=== PATIENT | male | born 1995 | race American Indian/Alaskan Native ===

== ENCOUNTER 2017-06-23 19:13 | Emergency (ER) | payer OTHER ==
[2017-06-23 20:07] VITALS: BP 118/58
[2017-06-23] MEDS ORDERED: NORCO 5/325 PO ONE (20:13)
[2017-06-23] MEDS ORDERED: MOTRIN PO ONE (20:13)
--- NOTE | 2017-06-23 20:13 | Emergency Department Report ---
ED Lower Extremity HPI - General Chief Complaint: Extremity Injury, Lower Stated Complaint: LEFT FOOT PAIN Time Seen by Provider: 06/23/17 20:08 Source: patient, family Mode of arrival: Ambulatory Limitations: No Limitations - History of Present Illness Initial Comments: Patient here reports that he was playing basketball and he is left ankle foot twisted while playing basketball. He is reporting pain 10 out of 10 that feel achy and throbbing. Denies any numbness or tingling to extremities. Denies any fall. Denies any back or neck pain. Denies any headache. He said he did not take any medication prior to coming to the emergency room. MD Complaint: ankle injury, foot injury -: This evening Injury: Ankle: Left (pain and swelling), Foot: Left (pain) Type of Injury: inversion (while playing basketball) Place: street/outdoors Severity: severe Severity scale (0 -10): 10 Improves With: nothing Worsens With: weight bearing, movement, palpation Context: running Associated Symptoms: swelling, able to partially bear weight. denies: snap/pop sensation, numbness, tingling, unable to bear weight, ambulatory Treatments Prior to Arrival: other (none) - Related Data Previous Rx's Medication Instructions Recorded Last Taken Type Ibuprofen [Motrin] 600 mg PO Q8H PRN #15 tablet 06/23/17 Unknown Rx Allergies Allergy/AdvReac Type Severity Reaction Status Date / Time No Known Allergies Allergy Unverified 06/23/17 19:51 ED Review of Systems ROS: Stated complaint: LEFT FOOT PAIN Other details as noted in HPI Comment: All other systems reviewed and negative Constitutional: denies: chills, fever Respiratory: no symptoms reported Cardiovascular: denies: chest pain, palpitations, edema, syncope Gastrointestinal: denies: abdominal pain, nausea, vomiting, diarrhea Musculoskeletal: joint swelling, arthralgia. denies: back pain, myalgia Skin: denies: rash Neurological: denies: headache, weakness, numbness, paresthesias, confusion, abnormal gait, vertigo ED Past Medical Hx - Past Medical History Previous Medical History?: No - Surgical History Past Surgical History?: No - Family History Family history: no significant - Social History Smoking Status: Never Smoker Substance Use Type: Marijuana Other Social History: Single and lives with family - Medications Home Medications: Home Medications Medication Instructions Recorded Confirmed Last Taken Type Ibuprofen [Motrin] 600 mg PO Q8H PRN #15 tablet 06/23/17 Unknown Rx ED Physical Exam - General Limitations: No Limitations General appearance: alert, in no apparent distress - Head Head exam: Present: atraumatic, normocephalic, normal inspection - Eye Eye exam: Present: normal appearance, PERRL, EOMI. Absent: periorbital swelling , periorbital tenderness Pupils: Present: normal accommodation - Neck Neck exam: Present: normal inspection, full ROM. Absent: tenderness, meningismus, lymphadenopathy - Respiratory Respiratory exam: Present: normal lung sounds bilaterally. Absent: respiratory distress, chest wall tenderness - Cardiovascular Cardiovascular Exam: Present: regular rate, normal rhythm, normal heart sounds - GI/Abdominal GI/Abdominal exam: Present: soft, normal bowel sounds. Absent: distended, tenderness, guarding, rebound, rigid - Extremities Exam Extremities exam: Present: full ROM (full range of motion to left ankle but reports pain), tenderness (tender to palpate the left outer ankle), normal capillary refill, joint swelling (left outer ankle). Absent: normal inspection , pedal edema, calf tenderness - Expanded Lower Extremity Exam Left Hip exam: Present: normal inspection, full ROM, pelvic stability. Absent: tenderness, swelling, abrasion, laceration, ecchymosis, deformity, crepidus, dislocation, erythema, external rotation, internal rotation, shortening Upper Leg exam: Present: normal inspection, full ROM. Absent: tenderness, swelling, abrasion, laceration, ecchymosis, deformity, crepidus, dislocation, erythema Knee exam: Present: normal inspection, full ROM, full knee extension. Absent: tenderness, swelling, abrasion, laceration, ecchymosis, deformity, crepidus, dislocation, erythema, effusion, pain w/ pronation/supination Lower Leg exam: Present: normal inspection, full ROM. Absent: tenderness, swelling, abrasion, laceration, ecchymosis, deformity, crepidus, dislocation, erythema, palpable cord, Jennifer's sign Ankle exam: Present: full ROM (Pain with movement), tenderness (left outer ankle ), swelling (left outer ankle). Absent: normal inspection, abrasion, laceration , ecchymosis, deformity, crepidus, dislocation, erythema Foot/Toe exam: Present: normal inspection, full ROM. Absent: tenderness, swelling, abrasion, laceration, ecchymosis, deformity, crepidus, dislocation, erythema, amputation, puncture wound, foreign body, calcaneal tenderness, tenderness at base of 5th metatarsal, nail avulsion, subungual hematoma Neuro vascular tendon exam: Present: no vascular compromise. Absent: pulse deficit, abnormal cap refill, motor deficit, sensory deficit, tendon deficit, extremity cold to touch, pallor, abnormal 2-point discrimination, decreased fine /light touch, foot drop, peroneal nerve deficit, significant pain with passive ROM of distal joint Gait: Positive: observed and limited by pain - Back Exam Back exam: Present: normal inspection, full ROM. Absent: tenderness, CVA tenderness (R), CVA tenderness (L), muscle spasm, paraspinal tenderness, vertebral tenderness, rash noted - Neurological Exam Neurological exam: Present: alert, oriented X3, normal gait, reflexes normal. Absent: motor sensory deficit - Psychiatric Psychiatric exam: Present: normal affect, normal mood - Skin Skin exam: Present: warm, dry, intact, normal color. Absent: rash ED Course Vital Signs 06/23/17 06/23/17 19:47 20:21 Temperature 98 F Pulse Rate 74 Respiratory 16 16 Rate Blood Pressure 118/58 Blood Pressure 118/58 [Left] O2 Sat by Pulse 100 Oximetry - Reevaluation(s) Reevaluation #1: 06/23/17 21:08 Patient given [place] 5/325 2 tablets and Motrin 800 mg emergency room for ankle pain - Orthopedic Splinting/Casting Injury #1 Side: left Lower Extremity Injury Location: ankle Lower Extremity Immobilizer: stirrup splint Additional Comments: Patient placed in left ankle stirrup and tolerated procedure well. He is with good color, sensation, temperature and movement to left foot. ED Lower Extremity MDM - Radiology Data Radiology results: report reviewed X-ray of left foot and ankle reveal no acute fracture dislocation. Patient with swelling and some soft tissue swelling to left ankle. - Medical Decision Making ED course: Patient here after he injured his left ankle and complaining of left ankle and left foot pain after twisting his ankle playing basketball. She was given [place] 5/325 2 tablets and Motrin 800 mg in the emergency room which relieved his pain. X-ray of left ankle and left foot reveal no fracture or dislocation and this was relayed to patient. There was some soft tissue swelling so patient with diagnosis of left ankle sprain and arthralgia left ankle and left foot. Diagnosis and treatment plan explained to patient. Rice therapy explained. He is understanding of discharge diagnosis and treatment plan discharge home with prescription for Motrin and to follow up with orthopedic doctor. Critical care attestation.: If time is entered above; I have spent that time in minutes in the direct care of this critically ill patient, excluding procedure time. ED Disposition Clinical Impression: Arthralgia of multiple sites Mild sprain of left ankle Qualifiers: Encounter type: initial encounter Qualified Code(s): S93.402A - Sprain of unspecified ligament of left ankle, initial encounter Disposition: TO HOME OR SELFCARE Is pt being admited?: No Does the pt Need Aspirin: No Condition: Stable Instructions: Ankle Sprain (ED), Ankle Stirrup Splint (ED), Knee Exercises (GEN ), Arthralgia (ED) Additional Instructions: Please rest for 72 hours See discharge instructions for rice protocol Take Motrin as this is an anti-inflammatory and he will help U pain and to reduce swelling Prescriptions: Ibuprofen [Motrin] 600 mg PO Q8H PRN #15 tablet PRN Reason: Pain Referrals: AUBREY HAQUE MD [Staff Physician] - 3-5 Days Forms: Work/School Release Form(ED)
--- NOTE | 2017-06-23 20:46 | XRay Report ---
FINAL REPORT PROCEDURE: XR ANKLE 3+V LT TECHNIQUE: LEFT ankle radiographs, AP, lateral, and oblique views. CPT 84483 HISTORY: lt ankle swelling and injury. Pain COMPARISON: No prior studies are available for comparison. FINDINGS: Fracture (s) and/or Dislocation(s): None. Alignment: Normal. Joint space(s): Normal. Soft tissues: Normal. Bone mineralization: Normal. Foreign bodies: None. Calcaneal spurring: None. IMPRESSION: Normal Examination.
--- NOTE | 2017-06-23 20:47 | XRay Report ---
FINAL REPORT PROCEDURE: XR FOOT 2V LT TECHNIQUE: LEFT foot radiographs, AP and lateral views. HISTORY: Left foot and ankle pain COMPARISON: No prior studies are available for comparison. FINDINGS: Fracture (s) and/or Dislocation(s): None . Alignment: Normal. Joint space(s): Normal. Soft tissues: Normal. Bone mineralization: Normal. Foreign bodies: None. Calcaneal spurring: None. IMPRESSION: Normal Examination.
== END 2017-06-23 21:30 | disposition home or self-care (01) ==
LOC: ED 19:13
DX: S93.402A Sprain of unspecified ligament of left ankle, initial encounter (principal); F12.10 Cannabis abuse, uncomplicated; X58.XXXA Exposure to other specified factors, initial encounter; Y93.67 Activity, basketball; Y92.89 Other specified places as the place of occurrence of the external cause; Y99.8 Other external cause status
CPT/HCPCS: 99283

== ENCOUNTER 2017-09-04 17:04 | Emergency (ER) | payer SELFPAY ==
[2017-09-04 18:29] LABS: Basophils % (Auto) 0.2 % (0.0-1.8); Eosinophils % (Auto) 0.1 % (0.0-4.3); Hematocrit 47.6 % (35.5-45.6); Hemoglobin 16.3 gm/dl (11.8-15.2); Mean Corpuscular HGB Conc 34 % (32-34); Mean Corpuscular Hemoglobin 31 pg (28-32); Mean Corpuscular Volume 89 fl (84-94); Platelet Count 234 K/mm3 (140-440); Red Blood Count 5.35 M/mm3 (3.65-5.03); Red Cell Distribution Width 12.8 % (13.2-15.2); White Blood Count 10.5 K/mm3 (4.5-11.0)
[2017-09-04 18:32] LABS: Anion Gap 16 mmol/L; BUN/Creatinine Ratio 11; Blood Urea Nitrogen 9 mg/dL (9-20); Calcium 9.3 mg/dL (8.4-10.2); Carbon Dioxide 26 mmol/L (22-30); Chloride 102.5 mmol/L (98-107); Glucose 99 mg/dL (75-100); Potassium 4.1 mmol/L (3.6-5.0); Sodium 140 mmol/L (137-145)
[2017-09-04] MEDS: TORADOL IV ONE (20:10)
[2017-09-04] MEDS: NACL 0.9% 1000 ML 1,000 ML IV ONE (20:10)
[2017-09-04] MEDS: ZOFRAN IV ONE (20:10)
[2017-09-04 20:17] LABS: Bilirubin,Urine NEG (Negative); Blood,Urine NEG (Negative); Ketones,Urine NEG (Negative); Leukocyte Esterase,Urine NEG (Negative); Mucus,Urine 3+ /HPF; Nitrite,Urine NEG (Negative); WBC,Urine < 1.0 /HPF (0.0-6.0)
--- NOTE | 2017-09-04 20:53 | Emergency Department Report ---
ED N/V/D HPI - General Chief complaint: Nausea/Vomiting/Diarrhea Stated complaint: VOMTING Time Seen by Provider: 09/04/17 19:04 Source: patient Mode of arrival: Ambulatory Limitations: No Limitations - History of Present Illness Initial comments: pt is a 21 y/o aam with nmh , who woke up with n/v/d x 4 episodes, pt presents with other family member for same symptoms after eating marci noodles last pm, symptoms including loose stool with n/v stomach contents and abdominal spasm x 4 episodes , symptoms rated at 4/10 aching cramping gnawing, there is no fever or chills no dizziness no lightheadedness, last po intake this am. MD complaint: nausea, vomiting, diarrhea, abdominal pain Onset/Timin -: days(s) Description of Vomiting: food contents Description of Diarrhea: water Associated Abdominal Pain: Yes (4/10) Location: diffuse Radiation: none Pain Scale: 4 Quality: cramping, aching Consistency: intermittent Improves with: none Worsens with: eating Context: possible food poisoning (other family member same symptoms eat same food. ) Associated Symptoms: nausea/vomiting. denies: myalgias, chest pain, cough, diaphoresis, fever/chills, headaches, loss of appetite, malaise, rash, dysuria, shortness of breath, syncope, weakness - Related Data Previous Rx's Medication Instructions Recorded Last Taken Type Ibuprofen [Motrin] 600 mg PO Q8H PRN #15 tablet 06/23/17 Unknown Rx Dicyclomine [Bentyl] 10 mg PO QID PRN #30 capsule 09/04/17 Unknown Rx Ondansetron [Zofran TAB] 4 mg PO Q8HR PRN #12 tablet 09/04/17 Unknown Rx Allergies Allergy/AdvReac Type Severity Reaction Status Date / Time No Known Allergies Allergy Unverified 06/23/17 19:51 ED Review of Systems ROS: Stated complaint: VOMTING Other details as noted in HPI Constitutional: denies: chills, fever Eyes: denies: eye pain, eye discharge, vision change ENT: denies: ear pain, throat pain Respiratory: no symptoms reported Cardiovascular: denies: chest pain, palpitations Endocrine: no symptoms reported Gastrointestinal: abdominal pain, nausea, vomiting, diarrhea. denies: constipation, hematemesis, melena, hematochezia Genitourinary: denies: urgency, dysuria Musculoskeletal: denies: back pain, joint swelling, arthralgia Skin: denies: rash, lesions Neurological: denies: headache, weakness, paresthesias Psychiatric: denies: anxiety, depression Hematological/Lymphatic: denies: easy bleeding, easy bruising ED Past Medical Hx - Past Medical History Previous Medical History?: No - Surgical History Past Surgical History?: No - Social History Smoking Status: Current Some Day Smoker Substance Use Type: Alcohol, Marijuana - Medications Home Medications: Home Medications Medication Instructions Recorded Confirmed Last Taken Type Ibuprofen [Motrin] 600 mg PO Q8H PRN #15 tablet 06/23/17 Unknown Rx Dicyclomine [Bentyl] 10 mg PO QID PRN #30 capsule 09/04/17 Unknown Rx Ondansetron [Zofran TAB] 4 mg PO Q8HR PRN #12 tablet 09/04/17 Unknown Rx ED Physical Exam - General Limitations: No Limitations General appearance: alert, in no apparent distress - Head Head exam: Present: atraumatic, normocephalic - Eye Eye exam: Present: normal appearance - ENT ENT exam: Present: normal orophraynx, mucous membranes moist - Neck Neck exam: Present: normal inspection, full ROM - Respiratory Respiratory exam: Present: normal lung sounds bilaterally. Absent: respiratory distress, wheezes, stridor - Cardiovascular Cardiovascular Exam: Present: regular rate, normal rhythm, normal heart sounds. Absent: systolic murmur, diastolic murmur, rubs, gallop - GI/Abdominal GI/Abdominal exam: Present: soft, normal bowel sounds. Absent: distended, tenderness, guarding, rebound, rigid, diminished bowel sounds, organomegaly, mass, bruit, pulsatile mass, hernia - Expanded GI/Abdominal Exam Expanded GI/Abdominal exam: Absent: psoas sign, obturator sign, heel tap sign, Hoyos's sign, Rovsing's sign, tenderness at [place]'s Point, ascites - Rectal Rectal exam: Present: deferred - Extremities Exam Extremities exam: Present: normal inspection - Back Exam Back exam: Present: normal inspection - Neurological Exam Neurological exam: Present: alert, oriented X3 - Psychiatric Psychiatric exam: Present: normal affect, normal mood - Skin Skin exam: Present: warm, dry, intact, normal color. Absent: rash ED Course Vital Signs 09/04/17 17:29 Temperature 98.9 F Pulse Rate 85 Respiratory 18 Rate Blood Pressure 128/69 O2 Sat by Pulse 100 Oximetry ED Medical Decision Making - Lab Data Result diagrams: 09/04/17 18:02 09/04/17 18:02 Laboratory Tests 09/04/17 09/04/17 09/04/17 18:02 18:02 19:16 WBC 10.5 RBC 5.35 H Hgb 16.3 H Hct 47.6 H MCV 89 MCH 31 MCHC 34 RDW 12.8 L Plt Count 234 Lymph % (Auto) 6.8 L Weber % (Auto) 5.2 Eos % (Auto) 0.1 Baso % (Auto) 0.2 Lymph # 0.7 L Weber # 0.5 Eos # 0.0 Baso # 0.0 Seg Neutrophils % 87.7 H Seg Neutrophils # 9.2 H Sodium 140 Potassium 4.1 Chloride 102.5 Carbon Dioxide 26 Anion Gap 16 BUN 9 Creatinine 0.8 Estimated GFR > 60 BUN/Creatinine Ratio 11 Glucose 99 Calcium 9.3 Urine Color Yellow Urine Turbidity Clear Urine pH 8.0 H Ur Specific [place] 1.026 Urine Protein 100 mg/dl Urine Glucose (UA) Neg Urine Ketones Neg Urine Blood Neg Urine Nitrite Neg Urine Bilirubin Neg Urine Urobilinogen 2.0 Ur Leukocyte Esterase Neg Urine WBC (Auto) < 1.0 Urine RBC (Auto) 1.0 Urine Mucus 3+ - Medical Decision Making pt is a 21 y/o aam with nmh , who woke up with n/v/d x 4 episodes, pt presents with other family member for same symptoms after eating [place]ci noodles last pm, symptoms including loose stool with n/v stomach contents and abdominal spasm x 4 episodes , symptoms rated at 4/10 aching cramping gnawing, there is no fever or chills no dizziness no lightheadedness, last po intake this am. exam: pt appears well hydrated well nourished and nontoxic abd: bs x 4 qds abd soft nontender no bruit no rebound , labs noted normal , symptoms are resolved at this time pt is tolerating po intake without n/v/d plan: dc to home with bentyl , zofran, and hydration instructions pt will follow up with primary care in 3 days or return immediately to emergency if symptoms worsen pt verbalized agreement and understanding with discharge plan. Critical care attestation.: If time is entered above; I have spent that time in minutes in the direct care of this critically ill patient, excluding procedure time. ED Disposition Clinical Impression: Nausea vomiting and diarrhea Disposition: DC-01 TO HOME OR SELFCARE Is pt being admited?: No Does the pt Need Aspirin: No Condition: Good Instructions: Acute Nausea and Vomiting (ED) Prescriptions: Dicyclomine [Bentyl] 10 mg PO QID PRN #30 capsule PRN Reason: abdominal pain Ondansetron [Zofran TAB] 4 mg PO Q8HR PRN #12 tablet PRN Reason: Nausea And Vomiting Referrals: PRIMARY CARE, [Primary Care Provider] - 3-5 Days Forms: Work/School Release Form(ED) Time of Disposition: 21:00
[2017-09-04 21:38] VITALS: BP 106/60
== END 2017-09-04 21:10 | disposition home or self-care (01) ==
LOC: ED 17:04
DX: R11.2 Nausea with vomiting, unspecified (principal); R19.7 Diarrhea, unspecified; R10.84 Generalized abdominal pain; F12.10 Cannabis abuse, uncomplicated; F17.200 Nicotine dependence, unspecified, uncomplicated
CPT/HCPCS: 36415; 80048; 81001; 85025; 96361; 96374; 96375; 99283; J1885; J2405; J7030

== ENCOUNTER 2018-07-01 17:22 | Emergency (ER) | payer SELFPAY ==
[2018-07-01 17:58] VITALS: BP 126/70
--- NOTE | 2018-07-01 18:58 | Emergency Department Report ---
ED ENT HPI - General Chief complaint: Dental/Oral Stated complaint: TOOTH PAIN/SWELLING Time Seen by Provider: 07/01/18 18:52 Source: patient Mode of arrival: Ambulatory Limitations: No Limitations - History of Present Illness Initial comments: This is a 22-year-old male nontoxic, well nourished in appearance, no acute signs of distress presents to the ED with c/o of right lower toothache 6 months. Patient denies following up with a dentist. Patient stated that pain radiates from his job to his right side of head. Patient otherwise denies any head trauma. Patient describes toothache as aching level of 8 out of 10. Patient denies any facial swelling. Patient denies any numbness, tingling, fever, chills, headache, stiff neck, abdominal pain, chest pain, shortness of breath. Patient denies any drug allergies or significant past medical history. MD complaint: tooth pain -: month(s) (6) Location: tooth # 1 - pain here Severity: mild Severity scale (0 -10): 8 Quality: aching Consistency: constant Improves with: none Worsens with: none Associated Symptoms: gum swelling, toothache. denies: fever, cough, pain with swallowing, sore throat, tinnitus, hearing loss, discharge from ear, rhinorrhea - Related Data Previous Rx's Medication Instructions Recorded Last Taken Type Ibuprofen [Motrin] 600 mg PO Q8H PRN #15 tablet 06/23/17 Unknown Rx Dicyclomine [Bentyl] 10 mg PO QID PRN #30 capsule 09/04/17 Unknown Rx Ondansetron [Zofran TAB] 4 mg PO Q8HR PRN #12 tablet 09/04/17 Unknown Rx Amoxicillin/K Clav Tab [Augmentin 1 tab PO Q12HR #20 tab 07/01/18 Unknown Rx 875 mg] Chlorhexidine Mouthwash [Peridex] 15 ml MM BID #1 bottle 07/01/18 Unknown Rx Ibuprofen [Motrin] 600 mg PO Q8H PRN #30 tablet 07/01/18 Unknown Rx Allergies Allergy/AdvReac Type Severity Reaction Status Date / Time No Known Allergies Allergy Verified 07/01/18 17:55 ED Dental HPI - General Chief complaint: Dental/Oral Stated complaint: TOOTH PAIN/SWELLING Time Seen by Provider: 07/01/18 18:52 Source: patient Mode of arrival: Ambulatory Limitations: No Limitations - Related Data Previous Rx's Medication Instructions Recorded Last Taken Type Ibuprofen [Motrin] 600 mg PO Q8H PRN #15 tablet 06/23/17 Unknown Rx Dicyclomine [Bentyl] 10 mg PO QID PRN #30 capsule 09/04/17 Unknown Rx Ondansetron [Zofran TAB] 4 mg PO Q8HR PRN #12 tablet 09/04/17 Unknown Rx Amoxicillin/K Clav Tab [Augmentin 1 tab PO Q12HR #20 tab 07/01/18 Unknown Rx 875 mg] Chlorhexidine Mouthwash [Peridex] 15 ml MM BID #1 bottle 07/01/18 Unknown Rx Ibuprofen [Motrin] 600 mg PO Q8H PRN #30 tablet 07/01/18 Unknown Rx Allergies Allergy/AdvReac Type Severity Reaction Status Date / Time No Known Allergies Allergy Verified 07/01/18 17:55 ED Review of Systems ROS: Stated complaint: TOOTH PAIN/SWELLING Other details as noted in HPI Constitutional: denies: chills, fever Eyes: denies: eye pain, eye discharge, vision change ENT: dental pain. denies: ear pain, throat pain Respiratory: denies: cough, shortness of breath, wheezing Cardiovascular: denies: chest pain, palpitations Endocrine: no symptoms reported Gastrointestinal: denies: abdominal pain, nausea, diarrhea Genitourinary: denies: urgency, dysuria Musculoskeletal: denies: back pain, joint swelling, arthralgia Skin: denies: rash, lesions Neurological: denies: headache, weakness, paresthesias Psychiatric: denies: anxiety, depression Hematological/Lymphatic: denies: easy bleeding, easy bruising ED Past Medical Hx - Past Medical History Previous Medical History?: No - Surgical History Past Surgical History?: No - Social History Smoking Status: Never Smoker Substance Use Type: Alcohol, Marijuana - Medications Home Medications: Home Medications Medication Instructions Recorded Confirmed Last Taken Type Ibuprofen [Motrin] 600 mg PO Q8H PRN #15 tablet 06/23/17 Unknown Rx Dicyclomine [Bentyl] 10 mg PO QID PRN #30 capsule 09/04/17 Unknown Rx Ondansetron [Zofran TAB] 4 mg PO Q8HR PRN #12 tablet 09/04/17 Unknown Rx Amoxicillin/K Clav Tab [Augmentin 1 tab PO Q12HR #20 tab 07/01/18 Unknown Rx 875 mg] Chlorhexidine Mouthwash [Peridex] 15 ml MM BID #1 bottle 07/01/18 Unknown Rx Ibuprofen [Motrin] 600 mg PO Q8H PRN #30 tablet 07/01/18 Unknown Rx ED Physical Exam - General Limitations: No Limitations General appearance: alert, in no apparent distress - Head Head exam: Present: atraumatic, normocephalic - Eye Eye exam: Present: normal appearance Pupils: Present: normal accommodation - ENT ENT exam: Present: mucous membranes moist, TM's normal bilaterally, normal external ear exam - Expanded ENT Exam Expanded Ear exam: Present: normal external inspection Mouth exam: Present: normal external inspection, tongue normal. Absent: drooling, trismus, muffled voice, tongue elevation, laceration Teeth exam: Present: dental caries, dental tenderness #, gingival enlargement, other (no facial swelling) 1 - Dental Tenderness Throat exam: Positive: normal inspection, other (Uvula midline). Negative: tonsillar erythema, tonsillomegaly, tonsillar exudate, R peritonsillar mass, L peritonsillar mass - Neck Neck exam: Present: normal inspection, full ROM. Absent: tenderness, meningismus, lymphadenopathy - Respiratory Respiratory exam: Present: normal lung sounds bilaterally. Absent: respiratory distress - Cardiovascular Cardiovascular Exam: Present: regular rate, normal rhythm. Absent: systolic murmur, diastolic murmur, rubs, gallop - GI/Abdominal GI/Abdominal exam: Present: soft, normal bowel sounds - Rectal Rectal exam: Present: deferred - Extremities Exam Extremities exam: Present: normal inspection - Back Exam Back exam: Present: normal inspection - Neurological Exam Neurological exam: Present: alert, oriented X3 - Psychiatric Psychiatric exam: Present: normal affect, normal mood - Skin Skin exam: Present: warm, dry, intact, normal color. Absent: rash ED Course Vital Signs 07/01/18 17:55 Temperature 98.8 F Pulse Rate 85 Respiratory 16 Rate Blood Pressure 126/70 O2 Sat by Pulse 100 Oximetry - Reevaluation(s) Reevaluation #1: 07/01/18 19:28 Patient is speaking in full sentences with no signs of distress noted. Critical care attestation.: If time is entered above; I have spent that time in minutes in the direct care of this critically ill patient, excluding procedure time. ED Disposition Clinical Impression: Dental caries, Gingivitis Disposition: DC-01 TO HOME OR SELFCARE Is pt being admited?: No Does the pt Need Aspirin: No Condition: Stable Instructions: Dental Caries (ED), Gingivitis (ED) Additional Instructions: Follow-up with a dentist doctor in 3-5 days or if symptoms worsen and continue return to emergency room as soon as possible. Prescriptions: Amoxicillin/K Clav Tab [Augmentin 875 mg] 1 tab PO Q12HR #20 tab Chlorhexidine Mouthwash [Peridex] 15 ml MM BID #1 bottle Ibuprofen [Motrin] 600 mg PO Q8H PRN #30 tablet PRN Reason: Pain Referrals: PRIMARY CARE, [Primary Care Provider] - 3-5 Days JENNY JUAREZ MD [Staff Physician] - 3-5 Days [facility] [Outside] - 3-5 Days Forms: Work/School Release Form(ED)
[2018-07-01] MEDS ORDERED: MOTRIN PO ONE (19:25)
== END 2018-07-01 19:57 | disposition home or self-care (01) ==
LOC: ED 17:22
DX: K02.9 Dental caries, unspecified (principal); K05.00 Acute gingivitis, plaque induced; F12.10 Cannabis abuse, uncomplicated
CPT/HCPCS: 99282